=== PATIENT | male | born 1960 ===

== ENCOUNTER 2022-09-26 10:11 | Outpatient (CLI) | payer OTHER ==
[~2022-09-26 10:11] MED LIST: COZAAR100 MG PO; GLIMEPIRIDE1 MG; LIPITOR20 MG PO; TAMS0.4C PO; TOPROL XL100 M1 PO
[2022-09-26] MEDS ORDERED: ALDACTONE25 MG PO (10:28)
[2022-09-26] MEDS ORDERED: PROSCAR5 MG PO (10:29)
== END 2022-09-26 10:18 | disposition home or self-care (01) ==
LOC: LAB 10:11
DX: E11.22 Type 2 diabetes mellitus with diabetic chronic kidney disease (principal)

== ENCOUNTER 2022-09-28 05:40 | Day surgery (SDC) | payer OTHER ==
[~2022-09-28] VITALS: Ht 175.3 cm; Wt 87.1 kg
[~2022-09-28 05:40] MED LIST changes: +ALDACTONE25 MG PO; +PROSCAR5 MG PO
== END 2022-09-28 16:05 | disposition home or self-care (01) ==
LOC: CIR.AMB 05:40
PROVIDERS: ATTEND Urology
DX: C67.9 Malignant neoplasm of bladder, unspecified (principal); N40.1 Benign prostatic hyperplasia with lower urinary tract symptoms; Z20.822 Contact with and (suspected) exposure to COVID-19

== ENCOUNTER 2025-05-21 06:00 | Day surgery (SDC) | payer OTHER ==
[2025-05-13 10:26] VITALS: BP 140/86
[2025-05-13 10:49] LABS: INR 1.18
[2025-05-13 10:51] LABS: URINE APPEARANCE Clear; URINE BILIRRUBIN Negative (NEGATIVE); URINE BLOOD Negative; URINE COLOR Yellow; URINE GLUCOSE Negative (NEGATIVE); URINE KETONE Negative (NEGATIVE); URINE LEUKOCYTE Negative; URINE NITRATE Negative; URINE PROTEIN Negative (NEGATIVE); URINE UROBILINOGEN 0.2 E.U./dl
[2025-05-13 10:52] LABS: URINE BACTERIA 40.0 uL (0.0-1933); URINE EPITHELIAL CELLS 5.6 uL (0.0-38.8); URINE WBC 20.7 uL (0.0-23.2)
[2025-05-13 11:09] LABS: COVID-19 AG NEGATIVE (NEGATIVE)
[2025-05-13 12:36] LABS: URINE CAST 0.00 uL (0.0-1.40); URINE RBC 1.5 uL (0.0-20.8)
[~2025-05-21] VITALS: Ht 175.3 cm; Wt 83.5 kg
[~2025-05-21 06:00] MED LIST changes: +CHLORTHALIDONE25 MG PO; +JARDIANCE10 MG PO; +LANTUS SOL100 UNIT/1
[2025-05-21] MEDS ORDERED: GENTAMICIN SULFATE 40 MG/ML VIAL ONE (06:43)
[2025-05-21] MEDS ORDERED: CHLORHEXIDINE GLUCONATE 120 ML BOTTLE TOP ONE (07:02)
[2025-05-21] MEDS ORDERED: PHENAZOPYRIDINE HCL 100 MG TABLET PO ONE ×2 (10:00→11:20)
== END 2025-05-21 13:05 | disposition home or self-care (01) ==
LOC: CIR.AMB 06:00
PROVIDERS: ATTEND Urology
DX: C67.9 Malignant neoplasm of bladder, unspecified (principal)

== ENCOUNTER 2025-05-24 11:58 | Emergency (ER) | payer OTHER ==
[~2025-05-24] VITALS: Ht 167.6 cm; Wt 68.0 kg
[2025-05-24 17:18] VITALS: BP 142/76; O2SAT 100
== END 2025-05-24 18:22 | disposition home or self-care (01) ==
LOC: ER 11:58
DX: Z46.6 Encounter for fitting and adjustment of urinary device (principal); C67.9 Malignant neoplasm of bladder, unspecified; C79.19 Secondary malignant neoplasm of other urinary organs; E11.9 Type 2 diabetes mellitus without complications; Z79.4 Long term (current) use of insulin; I10 Essential (primary) hypertension